=== PATIENT | female | born 1975 | race Caucasian/White ===

== ENCOUNTER → 2018-05-04 | Outpatient (CLI) | payer OTHER ==
[~2018-05-04] MED LIST: CELEXA20 MG; PERCOCET 325 MG1 TA2 PO; PERCOCET 325 MG1 TA5 PO; VICODIN 5/500 505 MG PO
== END | disposition home or self-care (01) ==
LOC: MAMMO 17:00
DX: Z12.31 Encounter for screening mammogram for malignant neoplasm of breast (principal)